=== PATIENT | male | born 1995 | race African-American/Black ===

== ENCOUNTER 2021-01-20 08:39 | Emergency (ER) | payer OTHER ==
[~2021-01-20] VITALS: Ht 170.2 cm; Wt 63.5 kg
--- NOTE | 2021-01-20 08:46 | NUR ---
[email or web address], from homeless senior [facility], c/o right upper back pain, woke up this morning with 10/10 pain scale. On room air, breathing evenly and unlabored. kept comfortable, will continue to monitor accordingly.
[2021-01-20] MEDS ORDERED: HYDROCODONE/APAP 5/325MG TABLET ONE (08:57)
[2021-01-20] MEDS: HYDROCODONE/APAP 5/325MG TABLET PO ONE (08:59)
[2021-01-20 09:12] LABS: BASOPHILS % (AUTO) 0.3 % (0.0-2.0); EOSINOPHILS % (AUTO) 3.4 % (0.0-6.0); HEMATOCRIT 45 % (39-51); HEMOGLOBIN 14.6 g/dL (13.5-17.5); LYMPHOCYTES # (AUTO) 2.3 /CMM (0.8-4.8); LYMPHOCYTES % (AUTO) 39.5 % (20.0-44.0); MEAN CORPUSCULAR HGB CONC 32 g/dl (31.0-36.0); MEAN CORPUSCULAR VOLUME 90 fL (80-96); MONOCYTES # (AUTO) 0.4 /CMM (0.1-1.30); MONOCYTES % (AUTO) 6.8 % (2.0-12.0); PLATELET COUNT (AUTO) 436 /CMM (150-450); RED BLOOD CELL COUNT(AUTO) 5.01 MIL/uL (4.5-6.0); WHITE BLOOD COUNT (AUTO) 5.9 K/uL (4.3-11.0)
[2021-01-20 09:25] LABS: CALCIUM, SERUM 8.5 mg/dL (8.5-10.1); CARBON DIOXIDE 27 mmol/L (21-32); CHLORIDE 105 mmol/L (98-107); CREATININE 0.8 mg/dL (0.6-1.3); GLUCOSE 87 mg/dL (74-106); POTASSIUM 4.2 mmol/L (3.5-5.1); SODIUM SERUM 143 mmol/L (136-145); UREA NITROGEN, BLOOD 7 mg/dL (7-18)
[2021-01-20 09:30] LABS: ALANINE AMINOTRANSFERASE 18 U/L (12-78); ALBUMIN 3.2 g/dL (3.4-5.0); ALKALINE PHOSPHATASE 114 U/L (46-116); ASPARTATE AMINOTRANSFERASE 15 U/L (15-37); BILIRUBIN,DIRECT 0.1 mg/dL (0.0-0.2); BILIRUBIN,TOTAL 0.5 mg/dL (0.2-1.0); TOTAL PROTEIN, SERUM 7.2 g/dL (6.4-8.2)
--- NOTE | 2021-01-20 10:19 | NUR ---
THE PATIENT IN ER BED#13. IN ROOM AIR AND DENIES SOB. RESPIRATION REGULAR AND UNLABORED. DENIES PAIN AT THIS TIME. THE PATIENT IS ALERT AND ORIENTED X2. PATIENT IS ATTACHED ON A MONITOR. WILL CONTINUE TO MONITOR THE PATIENT.
--- NOTE | 2021-01-20 10:57 | NUR ---
PATIENT A/OX4, BREATHING EVEN AND UNLABORED, NO SOB NOTED. AMBULATORY WITH STEADY GAIT. NEEDS ATTENDED. KEPT COMFORTABLE. PATIENT SEEN AND CONSULTED BY APPLICATION SOFTWARE DEVELOPER, RESOURCES PROVIDED. Patient given written and verbal discharge instructions. Patient verbalizes understanding of instructions. Patient is ambulatory with steady gait. Refuses offer of senior care placement. Patient given list of available shelters in surrounding area.
[2021-01-20 11:00] VITALS: BP 126/87
--- NOTE | 2021-01-20 12:10 | NUR ---
Social Service Consult: social services designee consult requested for homelessness. Patient is a 25-year-old, -[place] male. SW met with the patient at his hospital bed in the emergency department. Patient was alert and oriented x4. Patient was resting. Per patients chart, patient came into the emergency department 01/20/2021 for back pain. Patient is currently living alone at [facility] ([id number] [place] [address]; [phone]). Patient stated that he has been living here since 10/2020 and mentioned that the program helps you get housed. Patient mentioned that he has a source of support from his mother, Rocío [phone]. SW assessed patients history of mental illness and patient stated that he has a history of Schizophrenia and Anxiety and is currently taking psychotropic medication. SW asked the patient if he has been experiencing hallucinations or delusions and patient stated that he experienced auditory and visual hallucinations yesterday, but did not describe further. Patient feels he has adequate support from [facility]. Patient stated he is independent with his ADLs. Patient stated he is ambulatory and usually takes the bus for transportation. SW asked patient about his history of substance use and patient stated that drinks alcohol daily. Patient stated that his last drink was yesterday 01/19/2021. Patient reports drinking around 8 drinks daily (whiskey). SW discussed alcohol resources with the patient. Patient stated I know about the resources. I dont need them. SW discussed homeless resources with the patient. Patient stated that he did not need the resources as his current living arrangement provides him with adequate support. SW asked patient to sign the homeless waiver. Patient signed the homeless waiver and SW filed the waiver in the patients chart. SW discussed discharge plan with the patient and patient stated he plans to return to his prior living arrangement. Patient stated he will take the bus and train for transportation. PLAN: Upon discharge, patient stated that he will return to his prior living arrangement. No further SS interventions needed at this time however, SW will follow-up as needed.
== END 2021-01-20 11:00 | disposition home or self-care (01) ==
LOC: ER 08:46
DX: M54.6 Pain in thoracic spine (principal); R07.89 Other chest pain; Z59.0 Homelessness
CPT/HCPCS: 36415; 71045-TC; 80048-TC; 80076-TC; 84484-TC; 85025-TC; 85378-TC